=== PATIENT | male | born 1980 | race Hispanic/Latino ===

== ENCOUNTER 2018-05-07 14:59 | Emergency (ER) | payer SELFPAY ==
[2018-05-07] MEDS ORDERED: Lidocaine 1% w/Epinephrine 1:100K 20 ML VIAL ONE (15:25)
[2018-05-07] MEDS ORDERED: Bacitracin Zinc 1 Packet ONE (15:38)
[2018-05-07] MEDS ORDERED: Adacel (T-DAP) 0.5 ML VIAL ONE (15:39)
== END 2018-05-07 16:02 | disposition home or self-care (01) ==
LOC: ERS 14:59
DX: S01.01XA Laceration without foreign body of scalp, initial encounter (principal); F17.210 Nicotine dependence, cigarettes, uncomplicated; W22.8XXA Striking against or struck by other objects, initial encounter
CPT/HCPCS: 12002; 90471; 90715; J2001

== ENCOUNTER 2018-05-15 13:14 | Emergency (ER) | payer OTHER, SELFPAY | END 2018-05-15 13:29 | disposition home or self-care (01) | LOC: ERS 13:14 | DX: S01.01XD Laceration without foreign body of scalp, subsequent encounter (principal); F17.210 Nicotine dependence, cigarettes, uncomplicated; X58.XXXD Exposure to other specified factors, subsequent encounter ==